=== PATIENT | male | born 1995 | race Caucasian/White ===

== ENCOUNTER 2018-01-02 04:09 | Emergency (ER) | payer OTHER ==
--- NOTE | 2018-01-02 05:34 | ED ---
Wound/Laceration HPI - General Chief Complaint: Wound/Laceration Stated Complaint: Hand injury/[facility] Time Seen by Provider: 01/02/18 05:30 Source: patient Mode of arrival: ambulatory Limitations: no limitations - History of Present Illness Initial Comments: Patient is 22-year-old man who presents to be evaluated after he had a laceration to his right hand. He indicates it was cut on sharp piece of metal. This happened a bit over 24 hours ago while he was at work. He states his last tetanus shot was when he was in high school. Patient denies complaints related to this currently. -: days(s) Location: other Extremity Location: Right: Hand Place: work Patient Tetanus UTD: Yes Context: accidental, sharp object use Associated Symptoms: none - Related Data Allergies Allergy/AdvReac Type Severity Reaction Status Date / Time No Known Allergies Allergy Verified 01/02/18 04:15 Review of Systems ROS Statement: Those systems with pertinent positive or pertinent negative responses have been documented in the HPI. ROS Other: All systems not noted in ROS Statement are negative. Constitutional: Denies: fever, chills Skin: Reports: as per HPI, lesions Neurological: Denies: weakness, numbness Past Medical History Additional Past Medical History / Comment(s): bilateral ankle fracture. History of Any Multi-Drug Resistant Organisms: None Reported Past Surgical History: No Surgical Hx Reported Past Psychological History: No Psychological Hx Reported Smoking Status: Current every day smoker Past Alcohol Use History: Occasional Past Drug Use History: Marijuana General Exam Limitations: no limitations Skin exam: Present: warm, dry, normal color, other (To the radial aspect of the right second digit over the distal phalanx, there has been avulsion of the epidermis. The underlying dermis is intact.). Absent: rash Course Vital Signs 01/02/18 04:11 Temperature 99.5 F Pulse Rate 70 Respiratory 16 Rate Blood Pressure 159/79 O2 Sat by Pulse 96 Oximetry Medical Decision Making - Medical Decision Making Discussed wound care and appropriate follow-up. Disposition Clinical Impression: Laceration Disposition: HOME SELF-CARE Condition: Good Instructions: Acute Wound Care (ED) Referrals: None,Stated [Primary Care Provider] - 1-2 days
[2018-01-02 05:54] VITALS: BP 130/60; PULSE 94; RESP 18; TEMP 98.6
== END 2018-01-02 05:51 | disposition home or self-care (01) ==
LOC: EC 04:09
DX: S61.210A Laceration without foreign body of right index finger without damage to nail, initial encounter (principal); F17.200 Nicotine dependence, unspecified, uncomplicated; W26.8XXA Contact with other sharp object(s), not elsewhere classified, initial encounter; Y99.0 Civilian activity done for income or pay
CPT/HCPCS: 99282

== ENCOUNTER 2018-08-04 15:34 | Emergency (ER) | payer OTHER ==
[2018-08-04 15:54] VITALS: PULSE 71; RESP 18
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
[2018-08-04 17:11] LABS: Prothrombin Time 47.8 sec (9.0-12.0)
[2018-08-04 17:15] LABS: INR 5.3 (<1.2)
[2018-08-04 17:51] VITALS: BP 117/64; TEMP 98.3
== END 2018-08-04 17:50 | disposition home or self-care (01) ==
LOC: EC 15:34
DX: Z79.01 Long term (current) use of anticoagulants (principal); R79.1 Abnormal coagulation profile; Z87.891 Personal history of nicotine dependence
CPT/HCPCS: 36415; 85610; 99283

== ENCOUNTER 2018-09-22 09:05 | Day surgery (SDC) | payer OTHER ==
[2018-09-22] MEDS ORDERED: ALPRAZolam 0.5 MG TAB PO ONE (09:19)
[2018-09-22 09:27] VITALS: TEMP 97.8
[2018-09-22 11:19] VITALS: BP 111/67; PULSE 60; RESP 16
--- NOTE | 2018-09-22 12:47 | US ---
ULTRASOUND GUIDED FNA THYROID BIOPSY: CLINICAL HISTORY: Request for 2 right-sided thyroid nodules for FNA FINDINGS: The procedure was explained to the patient. The risks, complications, benefits and alternatives were discussed and any questions were answered. Informed consent was obtained. Patient was placed supin e on the ultrasound table and prepped and draped in the usual sterile fashion. Utilizing a 25 gauge needle, five passes were made into the requested 2 right-sided thyroid nodules. Patient was stable throughout the procedure. Pathology is pending. All elements of maximal barrier technique were utilized. IMPRESSION: 1. Successful ultrasound guided FNA thyroid biopsy.
== END 2018-09-22 11:25 | disposition home or self-care (01) ==
LOC: RADPROMAIN 09:05
PROVIDERS: ATTEND Otolaryngology
DX: E04.1 Nontoxic single thyroid nodule (principal); R49.0 Dysphonia; Z79.01 Long term (current) use of anticoagulants; Z79.899 Other long term (current) drug therapy
CPT/HCPCS: 10022; 76942; 88173; 88305